=== PATIENT | female | born 2000 | race Asian ===

== ENCOUNTER 2023-10-08 12:37 | Inpatient (IN) | payer BC ==
[~2023-10-08] VITALS: Ht 152.4 cm; Wt 44.9 kg
[2023-10-08 12:40] VITALS: BP_SYST 123; PULSE 97; RESP 18; TEMP 97.8; O2SAT 99
[2023-10-08] MEDS ORDERED: KETOROLAC TROMETHAMINE 30 MG VIAL IM ONE (13:15)
[2023-10-08 13:36] LABS: BASOPHILS % (AUTO) 0.3 % (0.0-2.0); HEMATOCRIT 40.7 % (36-48); HEMOGLOBIN 13.7 g/dL (12.0-16.0); LYMPHOCYTES # (AUTO) 1.2 K/uL (1.0-5.5); LYMPHOCYTES % (AUTO) 12.5 % (20.5-51.5); MEAN CORPUSCULAR HEMOGLOBIN 33 pg (27-31); MEAN CORPUSCULAR HGB CONC 34 % (32-36); MEAN CORPUSCULAR VOLUME 98 fL (79.0-98.0); MONOCYTES % (AUTO) 10.1 % (1.7-9.3); NEUTROPHILS # (AUTO) 7.3 K/uL (1.8-7.7); NEUTROPHILS % (AUTO) 77.1 % (40.0-70.0); PLATELET COUNT (AUTO) 131 K/uL (130-430); RED BLOOD CELL COUNT(AUTO) 4.15 MIL/uL (4.2-6.2); RED CELL DISTRIBUTION WIDTH 15.5 % (9.0-15.0); WHITE BLOOD COUNT (AUTO) 9.5 K/uL (4.8-10.8)
[2023-10-08 13:48] LABS: CALCIUM 9.1 mg/dL (8.4-11.0); CREATININE 0.73 mg/dL (0.55-1.30); POTASSIUM 3.3 mmol/L (3.5-5.1)
[2023-10-08 13:54] LABS: ALBUMIN 4.5 g/dL (3.4-4.8); BILIRUBIN,DIRECT 0.4 mg/dL (0.0-0.3)
[2023-10-08] MEDS ORDERED: ACETYLCYSTEINE IV ONE ×3 (14:15→23:00)
[2023-10-08] MEDS ORDERED: D5W IV ONE ×3 (14:15→23:00)
[2023-10-08 14:59] LABS: BARBITURATE, URINE NEGATIVE (NEG <=200); BENZODIAZEPINE, URINE NEGATIVE (NEG <=150); CANNABINOID, URINE POSITIVE (NEG <=50); COCAINE, URINE NEGATIVE (NEG <=150); METHAMPHETAMINES SCREEN,URINE NEGATIVE (NEG <=500); OPIATE, URINE NEGATIVE (NEG <=100); PHENCYCLIDINE SCREEN,URINE NEGATIVE (NEG <=25); UR TRICYCLIC ANTIDEPRESSANTS POSITIVE (NEG <=300); URINE AMPHETAMINE NEGATIVE (NEG <=500); URINE METHADONE NEGATIVE (NEG <=200); URINE OXYCODONE SCREEN NEGATIVE (NEG <=100)
[2023-10-08] MEDS: NACL 0.9% 1,000 ML IV SCH ×2 (15:22→20:09)
[2023-10-08] MEDS ORDERED: POTASSIUM CHLORIDE 20 MEQ TABLET.ER PO PRN (16:00)
[2023-10-08] MEDS ORDERED: ONDANSETRON HCL 4 MG/2 ML VIAL IVP PRN (16:00)
[2023-10-08] MEDS ORDERED: MUPIROCIN 2% TOPICAL OINTMENT 22 GM NS PRN (16:00)
[2023-10-08] MEDS ORDERED: MAGNESIUM SULFATE 50 ML IV PRN (16:00)
[2023-10-08] MEDS ORDERED: DOCUSATE SODIUM 100 MG CAPSULE PO PRN (16:00)
[2023-10-08] MEDS ORDERED: ACETAMINOPHEN 500 MG TABLET PO PRN ×3 (16:00)
[2023-10-08] MEDS ORDERED: POTASSIUM CHLORIDE 20 MEQ TABLET.ER PO ONE (16:15)
[2023-10-08 16:37] LABS: ALBUMIN 4.1 g/dL (3.4-4.8); BILIRUBIN,DIRECT 0.4 mg/dL (0.0-0.3); TOTAL BILIRUBIN 1.2 mg/dL (0.0-1.0); TOTAL PROTEIN, SERUM 6.7 g/dL (6.4-8.3)
[2023-10-08 17:47] LABS: ABG O2 SAT% ESTIMATE 97.8 % (94.0-100.0); BLOOD GAS PCO2 30.7 mmHg (35.0-45.0); BLOOD GAS PH 7.368 (7.350-7.450)
[2023-10-08 17:48] LABS: BLOOD GAS HCO3 17.3 mmol/L (21.0-27.0)
[2023-10-08 17:49] LABS: ALLEN'S TEST POSITIVE (P); BLOOD GAS BASE EXCESS -6.7 mmol/L (-3.0-3.0)
[2023-10-08 18:26] LABS: INR 1.3 (0.8-1.2); PROTHROMBIN TIME 13.6 SECS (9.5-12.5)
[2023-10-09] MEDS: NACL 0.9% 1,000 ML IV SCH ×4 (00:54→17:39)
[2023-10-09 05:49] LABS: BASOPHILS % (AUTO) 0.1 % (0.0-2.0); HEMATOCRIT 36.5 % (36-48); HEMOGLOBIN 12.6 g/dL (12.0-16.0); LYMPHOCYTES % (AUTO) 13.6 % (20.5-51.5); MEAN CORPUSCULAR HEMOGLOBIN 34 pg (27-31); MEAN CORPUSCULAR HGB CONC 35 % (32-36); MEAN CORPUSCULAR VOLUME 97 fL (79.0-98.0); MONOCYTES # (AUTO) 0.5 K/uL (0.0-1.0); MONOCYTES % (AUTO) 6.8 % (1.7-9.3); NEUTROPHILS # (AUTO) 5.7 K/uL (1.8-7.7); NEUTROPHILS % (AUTO) 79.5 % (40.0-70.0); PLATELET COUNT (AUTO) 207 K/uL (130-430); RED BLOOD CELL COUNT(AUTO) 3.77 MIL/uL (4.2-6.2); RED CELL DISTRIBUTION WIDTH 15.2 % (9.0-15.0); WHITE BLOOD COUNT (AUTO) 7.1 K/uL (4.8-10.8)
[2023-10-09 06:09] LABS: ALBUMIN 3.4 g/dL (3.4-4.8); BILIRUBIN,DIRECT 0.7 mg/dL (0.0-0.3); CALCIUM 7.6 mg/dL (8.4-11.0); CREATININE 0.3 mg/dL (0.55-1.30); POTASSIUM 3.6 mmol/L (3.5-5.1); TOTAL BILIRUBIN 1.8 mg/dL (0.0-1.0); TOTAL PROTEIN, SERUM 5.7 g/dL (6.4-8.3)
[2023-10-09 06:36] LABS: INR 2.5 (0.8-1.2); PROTHROMBIN TIME 25.1 SECS (9.5-12.5)
[2023-10-09 12:00] VITALS: TEMP 98.1
[2023-10-09 12:59] LABS: ALBUMIN 3.1 g/dL (3.4-4.8); CALCIUM 7.8 mg/dL (8.4-11.0); CREATININE 0.68 mg/dL (0.55-1.30); POTASSIUM 3.6 mmol/L (3.5-5.1); TOTAL BILIRUBIN 1.8 mg/dL (0.0-1.0); TOTAL PROTEIN, SERUM 5.2 g/dL (6.4-8.3)
[2023-10-09 13:08] LABS: BILIRUBIN,DIRECT 0.7 mg/dL (0.0-0.3)
[2023-10-09] MEDS ORDERED: ACETYLCYSTEINE IV ONE (16:00)
[2023-10-09] MEDS ORDERED: D5W IV ONE (16:00)
[2023-10-09 17:00] VITALS: BP_SYST 120; PULSE 89; RESP 18; O2SAT 96
[2023-10-09] MEDS ORDERED: PHYTONADIONE 10 MG in NS 50 ML IV ONE (20:00)
== END 2023-10-09 19:21 | disposition short-term general hospital (02) | DRG 918 ==
LOC: SED 12:37 → SIC 14:42
PROVIDERS: ADMIT General Practice; ATTEND General Practice
DX: T39.1X2A Poisoning by 4-Aminophenol derivatives, intentional self-harm, initial encounter (principal); D68.9 Coagulation defect, unspecified; F33.2 Major depressive disorder, recurrent severe without psychotic features; R45.851 Suicidal ideations; N17.9 Acute kidney failure, unspecified; X58.XXXA Exposure to other specified factors, initial encounter; F17.210 Nicotine dependence, cigarettes, uncomplicated; Z91.148 Patient's other noncompliance with medication regimen for other reason
CPT/HCPCS: 36415; 36600; 76376; 80048; 80053; 80076; 80307; 82140; 82248; 82803; 83037; 83735; 85025; 85610-TC; 87081; 93005; 99291; G0480; G0481; J0132; J1885; J2405; J3430; J7060